=== PATIENT | female | born 1975 | race Caucasian/White ===

== ENCOUNTER 2017-08-22 01:52 | Emergency (ER) | payer OTHER ==
[2017-08-22] MEDS: IBUPROFEN 800 MG TAB PO (04:46)
== END 2017-08-22 06:12 | disposition home or self-care (01) ==
LOC: FTE 01:52
DX: J06.9 Acute upper respiratory infection, unspecified (principal); I10 Essential (primary) hypertension; E11.9 Type 2 diabetes mellitus without complications
CPT/HCPCS: 99284; Z7502

== ENCOUNTER 2019-01-23 16:37 | Emergency (ER) | payer OTHER | END 2019-01-23 18:05 | disposition home or self-care (01) | LOC: FTE 16:37 | DX: M72.2 Plantar fascial fibromatosis (principal); I10 Essential (primary) hypertension; E11.9 Type 2 diabetes mellitus without complications | CPT/HCPCS: 99282; Z7502 ==